=== PATIENT | female | born 1965 | race Caucasian/White ===

== ENCOUNTER 2022-11-08 08:33 | Day surgery (SDC) | payer MEDICAID, SELFPAY ==
[2022-11-08] VITALS (11 sets, daily range): BP systolic 83–130; BP diastolic 51–95; PULSE 59–74; RESP 16; TEMP 36.5–36.6; O2SAT 94–99; BMI 28.7
[2022-11-08] MEDS: LACTATED RINGERS 1000 ML 1,000 ML 100 ML IV (09:00)
[2022-11-08] MEDS: SODIUM CHLORIDE 0.9 % (FLUSH) 10 ML SYRINGE IVF (09:00)
--- NOTE | 2022-11-08 09:10 | SUR.PREOP ---
Patient provided home covid negative results to RN.
--- NOTE | 2022-11-08 09:24 | W.ANESCHARGE ---
Anesthesia Charges Start Date/Time Anesthesia Start Date: 11/08/22 Anesthesia Start Time: 10:18 Stop Date/Time Anesthesia Stop Date: 11/08/22 Anesthesia Stop Time: 11:16
[2022-11-08] MEDS: BUPIVACAINE 0.25% 30 ML INJECTION (11:01)
--- NOTE | 2022-11-08 11:03 | PM.ORPRC ---
Procedure Note Date of procedure: 11/08/22 Procedure: PREOPERATIVE DIAGNOSIS: Right knee medial meniscus tear POSTOPERATIVE DIAGNOSIS: Right knee medial meniscus tear NAME OF OPERATION: Right knee arthroscopic partial medial meniscectomy SURGEON: Stuart Smalls MD INSTRUCTIONAL INTERVENTIONIST: Verenice Weiss PA-C ANESTHESIA: Spinal ESTIMATED BLOOD LOSS: 0 mL COMPLICATIONS: None SPECIMENS: None DRAINS: None PREOPERATIVE ANTIBIOTICS: Ancef 2 gram INDICATIONS: The patient is a 57-year-old with a history of right knee medial pain. MRI scan is consistent with a medial meniscus tear. Despite appropriate nonoperative management, including activity modification, antiinflammatories, [id number] pain medication, bracing, physical therapy, and injections they continue to have pain and disability. Operative intervention was offered. The risks, benefits and expected outcomes were discussed in detail. These included but were not limited to: Infection, bleeding, injury to blood vessel or nerve, venous thromboembolism. All questions were answered to their satisfaction. PROCEDURE: Spinal anesthesia was administered. The patient was placed supine on the operating room table. The right lower extremity was prepped and draped in the usual sterile fashion. The limb was exsanguinated with the Aamir bandage. The pneumatic tourniquet was inflated to 300 mmHg. A standard anterolateral portal was established. The arthroscope was introduced. The working portal was established anteromedially. Diagnostic arthroscopy was performed with findings as follows: The suprapatellar pouch is normal. Articular surface on the patella shows diffuse grade 3 pattern changer and repairer the median ridge. Articular surface on the trochlea shows diffuse grade 3/4 change distally. The medial gutter is normal. The medial compartment shows normal articular cartilage on the medial femoral condyle and medial tibial plateau. The medial meniscus has a degenerative tear of the posterior horn, primarily consisting of a radial tear from the leading edge to the capsule with some vertical, longitudinal component creating an anteriorly based unstable flap. The notch shows the ACL to be intact. The lateral compartment shows normal articular cartilage on the lateral femoral condyle and lateral tibial plateau. The lateral meniscus is normal. The lateral gutter is normal. The posterior horn of the medial meniscus was debrided to a stable base using a combination of alfredo through both portals. Unstable chondral flaps on the patella were debrided with the shaver through both portals, taken to a stable base. Arthroscopic instruments were removed, the portal sites were Steri-Stripped closed, the knee was infiltrated with 30 mL of 0.25% Marcaine without epinephrine. A dry dressing was applied, the tourniquet was released. Sponge and needle counts were correct x 2. The patient tolerated the procedure well. There were no apparent complications. They were carefully transferred to the hospital bed and taken to the postanesthesia care unit in satisfactory condition. PLAN: The patient will be discharged to home. They may weightbear as tolerates. Range of motion will be unrestricted. They will follow up in the office next week for a wound check.
--- NOTE | 2022-11-08 11:13 | W.ANESCHARGE ---
Anesthesia Charges Start Date/Time Anesthesia Start Date: 11/08/22 Anesthesia Start Time: 10:18 Stop Date/Time Anesthesia Stop Date: 11/08/22 Anesthesia Stop Time: 11:16
== END 2022-11-08 12:45 | disposition home or self-care (01) ==
PROVIDERS: PCP Physician Assistant; Visit Provider Orthopaedic Surgery
PROC: (CPT 29882; principal; 2022-11-08 10:45)
DX: M23.221 Derangement of posterior horn of medial meniscus due to old tear or injury, right knee (principal)
CPT/HCPCS: 29881; 01400; J1100; J2250; J2400; J2405; J2704; J3010; J3490; J7120

== ENCOUNTER 2025-02-22 09:44 | Outpatient (CLI) | payer OTHER, SELFPAY | END 2025-02-22 09:45 | disposition home or self-care (01) | LOC: INJ CL 09:46 | PROVIDERS: PCP Physician Assistant; Visit Provider Family Medicine | DX: M54.16 Radiculopathy, lumbar region (principal); M51.26 Other intervertebral disc displacement, lumbar region; M51.369 Other intervertebral disc degeneration, lumbar region without mention of lumbar back pain or lower extremity pain | CPT/HCPCS: 64483; 64484; J1100; Q9966 ==